=== PATIENT | male | born 1990 | race Caucasian/White ===

== ENCOUNTER 2017-04-28 22:31 | Emergency (ER) | payer SELFPAY ==
[~2017-04-28] VITALS: Ht 175.3 cm; Wt 66.7 kg
[2017-04-28 22:37] VITALS: BP 144/90; PULSE 97; RESP 20; TEMP 98.4; O2SAT 97
--- NOTE | 2017-04-28 22:57 | PD ---
HPI Chief Complaint: Laceration/Skin Injury Time Seen by Provider: 22:51 Travel History International Travel<30 days: No Contact w/Intl Traveler<30days: No Traveled to known affect area: No History of Present Illness HPI 26-year-old male presents to the emergency department by private transportation for evaluation of injury to the left middle finger. Injury is to the distal aspect of the digit. According the patient just prior to arrival to the emergency department he was trying to transfer a part of an air conditioner and sustained a laceration on the metal. Patient does not know his tetanus status. Patient is right-handed. Patient rates his pain as minimum. PFSH Past Medical History Narrative Medical Negative past history negative surgical history; nursing notes reviewed Medical History: Denies Significant Hx Tetanus Vaccination: > 5 Years Influenza Vaccination: No Past Surgical History Oral Surgery: Yes (WISDOM TEETH EXTRACTIONS) Social History Alcohol Use: Yes ("WEEKENDS") Tobacco Use: Yes ("10 CIGARETTES IN 2 WEEKS, TRYING TO QUIT" STATED 04/28/17) Substance Use: No Allergies-Medications (Allergen,Severity, Reaction): Coded Allergies: No Known Allergies (Unverified , 04/28/17) Reported Meds & Prescriptions Reported Meds & Active Scripts Active No Active Prescriptions or Reported Medications Review of Systems Except as stated in HPI: all other systems reviewed are Neg Musculoskeletal: No: Limited ROM, Pain Skin: Positive Other (laceration) Hematologic/Lymphatic: No: Easy Bruising Physical Exam Narrative Gen.: well-developed well-nourished male in no acute distress no respiratory distress Extremity, attention left middle finger/third digit; radial aspect distal phalange 1.5 cm linear flap laceration with bleeding controlled; intact range of motion and digit for flexion extension; neurovascular tendon exam intact capillary refill less than 2 seconds. No foreign body visualized. Data Data Last Documented VS Vital Signs Date Time Temp Pulse Resp B/P (MAP) Pulse Ox O2 Delivery O2 Flow Rate FiO2 04/28/17 22:37 98.4 97 20 144/90 (108) 97 Orders Orders Tetanus/Diphtheria Tox Adult (Tetanus/Di (04/28/17 23:00) Wound Care (04/28/17 22:50) Ed Discharge Order (04/28/17 23:18) MDM Medical Decision Making Medical Screen Exam Complete: Yes Emergency Medical Condition: Yes Medical Record Reviewed: Yes Differential Diagnosis Laceration, neurovascular tendon injury, retained foreign body, bony injury Narrative Course Patient's tetanus status updated and laceration repaired Procedures Procedure Narrative LACERATION LOCATION: left middle finger LENGTH: 1.5 cm NUMBER OF STITCHES/GRAYSON: wound adhesive REPAIR: The area of the laceration was prepped with Betadine and NS. The wound was copiously irrigated and explored without evidence of foreign body, tendon injury or neurovascular injury. The wound was closed using wound adhesive. This was a single layer repair. A sterile dressing was applied. The patient was advised to keep the dressing clean and dry. Patient tolerated the procedure well. Diagnosis Primary Impression: Laceration of left middle finger Qualified Codes: S61.213A - Laceration without foreign body of left middle finger without damage to nail, initial encounter Referrals: Primary Care Physician 2 days Patient Instructions: General Instructions Additional Instructions: Keep one site clean and dry Follow-up with primary care provider Return to the emergency for any concerns or change in condition May take as needed as tolerated acetaminophen/Tylenol every 4 hours and/or ibuprofen/Advil/Motrin every 6-8 hours as needed for minor pain or for fever 100.4F or greater Scripts No Active Prescriptions or Reported Meds Disposition: 01 DISCHARGE HOME Condition: Stable Luzmaria Powell MD Apr 28, 2017 22:57
[2017-04-28] MEDS ORDERED: TETANUS/DIPHTHERIA TOXOID ADULT 0.5 ML VIAL IM ONE (23:00)
== END 2017-04-28 23:26 | disposition home or self-care (01) ==
LOC: PHED 22:31
DX: S61.213A Laceration without foreign body of left middle finger without damage to nail, initial encounter (principal); F17.210 Nicotine dependence, cigarettes, uncomplicated; W45.8XXA Other foreign body or object entering through skin, initial encounter; Y93.89 Activity, other specified; Z23 Encounter for immunization
CPT/HCPCS: 12001; 90471; 90714